=== PATIENT | male | born 1940 | race Caucasian/White ===

== ENCOUNTER 2019-05-07 01:21 | Observation (INO) ==
[2019-05-07] MEDS ORDERED: NITROGLYCERIN TOP ONE (01:28)
[2019-05-07 01:37] LABS: HEMOGLOBIN 15.1 g/dL (14.0-18.0); RBC 5.23 XMIL (4.7-6.1); WBC 5.74 X1000 (4.8-10.8)
[2019-05-07 01:38] LABS: BASO# 0.05 X1000 (0.0-0.2); BASO% 0.9 % (0.0-0.8); EOS# 0.28 X1000 (0.0-0.7); EOS% 4.9 % (0.0-10.0); HEMATOCRIT 44.8 % (42.0-52.0); IMM GRAN# 0.02 X1000 (0.0-0.04); IMM GRAN% 0.3 % (0.0-0.5); LYMPH# 2.11 X1000 (1.2-3.4); LYMPH% 36.8 % (20.5-51.1); MCH 28.9 PG (27-31); MCHC 33.7 g/dL (33-37); MCV 85.7 FL (81-99); MONO% 15.7 % (1.7-9.3); MPV 9.9 FL (7.4-10.4); NEUT# 2.38 X1000 (1.4-6.5); NEUT% 41.4 % (42.2-75.2); PLT 264 X1000 (130-400); RDW 13.8 % (11.5-14.5)
[2019-05-07] MEDS ORDERED: NITROGLYCERIN ONE (01:38)
--- NOTE | 2019-05-07 01:45 | PROVIDER DOCUMENTATION ---
This chart was entered by Jose Whitehead Scribe, acting as scribe for Cortez Jauregui MD. HPI-Chest Pain - General Chief Complaint: Chest Pain Stated Complaint: CHEST PAINS Time Seen by Provider: 05/07/19 01:28 Source: patient, EMS Allergies/Adverse Reactions: Patient Allergies Allergy/AdvReac Type Severity Reaction Status Date / Time some kind of pain pill not Allergy Unknown Uncoded 06/19/18 11:58 sure Home Medications: Home Medication List Medication Instructions Recorded Confirmed Last Taken Type Montelukast [Singulair] 10 mg PO DAILY 04/22/15 05/07/19 07/04/18 07:00 History Tamsulosin HCl 0.4 mg PO DAILY 04/22/15 05/07/19 07/04/18 07:00 History Verapamil HCl [Verapamil ER] 180 mg PO DAILY 04/22/15 05/07/19 07/04/18 07:00 History ATORVAstatin [Lipitor] 40 mg PO DAILY 12/30/15 05/07/19 07/04/18 07:00 History Canagliflozin [Invokana] 300 mg PO DAILY@0700 11/29/17 05/07/19 07/04/18 07:00 History Exenatide Microspheres [Bydureon 2 mg SQ DIRECTED 11/29/17 05/07/19 06/28/18 08:00 History Pen] Insulin Detemir [Levemir] 60 units INJ BID 11/29/17 05/07/19 07/04/18 07:00 History Cephalexin [Keflex] 500 mg PO Q6HR 07/04/18 05/07/19 07/03/18 18:00 History Clindamycin [Cleocin] 150 mg PO Q6HR #30 cap 04/29/19 05/07/19 Unknown Rx - History of Present Illness-CP Nature of Presenting Problem: Pt is a 78 yom who presents to the ED via EMS with a CC of chest pain. Pt states he began having chest pain at approximately 0000, so he called EMS. Pt states the episode lasted approximately 30 minutes. Pt describes the pain as a sharp pain in the center of his chest, but states he is not in any pain currently. Pt states he has a hx of four stents in his heart. Pt denies being a current smoker and denies etoh use. Pt reports having a cholecystectomy. Pt denies any fever, nausea, vomiting, and diarrhea. Location: reports: central Chest Pain Radiation: reports: no radiation Quality of Pain: reports: sharp Severity in ED: mild Onset/Duration: just prior to arrival Timing: gone now Associated Symptoms: reports: denies symptoms Prior Chest Pain/Cardiac Workup: reports: no prior chest pain, other (Four cardiac stents) Similar Symptoms Previously?: No Recently Seen Here or By Another Healthcare Provider: No Review of Systems - Adult - REVIEW OF SYSTEMS - ADULT Constitutional: reports: see HPI. denies: chills, fever, fatique, night sweats, weight gain Eyes: reports: no symptoms reported Ears, Nose, Mouth & Throat: reports: no symptoms reported Cardiovascular: reports: see HPI, chest pain. denies: heart murmur, irregular heart rate, orthopnea, palpitations, poor circulation Respiratory: reports: no symptoms reported Gastrointestinal: reports: no symptoms reported Genitourinary: reports: no symptoms reported Musculoskeletal: reports: no symptoms reported Integumentary: reports: no symptoms reported Neurological: reports: no symptoms reported Psychiatric: reports: no symptoms reported Endocrine: reports: no symptoms reported Hematologic/Lymphatic: reports: no symptoms reported Allergic/Immunologic: reports: no symptoms reported All Other Systems: Reviewed and Negative Past History - Adult - PAST MEDICAL HISTORY-ADULT Review of Records: reports: Old Records Reviewed, Nursing Assessment Review, Medications Reviewed, Social history reviewed & non-contributory. Major Childhood Illnesses: reports: denies history Cardiovascular: reports: CAD, HTN Respiratory: reports: denies history Gastrointestinal: reports: denies history Obstetrical/Gynecological: reports: denies history Genitourinary: reports: denies history Musculoskeletal: reports: denies history Neurological: reports: denies history Endocrine/Immune: reports: Diabetes Other Conditions: reports: denies history - PRIOR SURGERIES/PROCEDURES Surgical/Procedure History: reports: cholecystectomy, cardiac stent - IMMUNIZATION STATUS Childhood Immunizations: See Nurse Assessment Flu Vaccine: See Nurse Assessment - FAMILY HISTORY Family History: reviewed, not pertinent - SOCIAL HISTORY Smoking: non-smoker, quit greater than 1 year Substance Use: none/never, denies Alcohol Use Frequency: sober (former use) Physical Exam-General - PHYSICAL EXAM-ADULT Initial Vital Signs Reviewed: Yes - CONSTITUTIONAL General Appearance: appears well, alert, no apparent distress. negative: severe distress, cachetic, thin, anxious - EYES Eyes: PERRL/EOMI. negative: EOM palsy, meningismus, pale conjunctivae - RESPIRATORY Respiratory: chest non-tender, lungs clear, normal breath sounds, no pleuratic chest pain, no respiratory distress, no accessory muscle use. negative: respiratory distress, decreased breath sounds, accessory muscle use, crackles, stridor, wheezing - CARDIOVASCULAR Cardiovascular: normal peripheral pulses, regular rate, rhythm, no edema, no gallop, no JVD, no murmur. negative: JVD, bradycardia, tachycardia, diastolic murmur, gallop/S3, extra beats - GASTROINTESTINAL (ABDOMEN) Abdominal Exam: normal bowel sounds, non tender, soft. negative: distended, guarding, rigid, rebound, tenderness, hernia, mass - MUSCULOSKELETAL Extremity: normal range of motion, non-tender. negative: abnormal NV exam, calf tenderness, deformity, erythema, inflammation, joint effusion - SKIN Integumentary: normal color, normal turgor, warm/dry. negative: abrasion(s), ecchymosis, embolic lesions, erythema, signs of IVDA, jaundice, laceration(s) - NEUROLOGIC Neurologic: grossly normal, no motor/sensory deficits. negative: abnormal gait, aphasia, EOM palsy, facial droop, focal weakness, motor weakness, sensory deficit - PSYCHIATRIC Psych/Mental Status: normal mood/affect, normal thought content, normal thought process, oriented x 3. negative: disoriented x 3, anxious, disheveled, depressed affect - HEART Score HEART Score: History: Slightly Suspicious HEART Score: ECG: Normal HEART Score: Age: > or = 65 Years HEART Score: Risk Factors for Atherosclerotic Disease: > or = 3 Risk Factors or History of Atherosclerotic Disease HEART Score: Troponin: < or = Normal Limit Total HEART Score:: 4 Progress - PLAN OF CARE/RESULTS Progress/Plan/Lab Results: Vital Signs - 8 hr 05/07/19 01:22 Temperature 97.8 F Pulse Rate 83 Respiratory Rate 20 Blood Pressure 193/106 O2 Sat by Pulse Oximetry 96 Laboratory Results - last 24 hr 05/07/19 05/07/19 05/07/19 01:26 01:26 01:26 WBC 5.74 RBC 5.23 Hgb 15.1 Hct 44.8 MCV 85.7 MCH 28.9 MCHC 33.7 RDW Std Deviation 13.8 Plt Count 264 MPV 9.9 Immature Gran % (Auto) 0.3 Neut % (Auto) 41.4 L Lymph % (Auto) 36.8 [place] % (Auto) 15.7 H Eos % (Auto) 4.9 Baso % (Auto) 0.9 H Immature Gran # (Auto) 0.02 Neut # (Auto) 2.38 Lymph # (Auto) 2.11 [place] # (Auto) 0.90 H Eos # (Auto) 0.28 Baso # (Auto) 0.05 Sodium Potassium Chloride Carbon Dioxide Anion Gap BUN Creatinine Estimated GFR/1.73 m2 BUN/Creatinine Ratio Glucose Calculated Osmolality Calcium Total Bilirubin AST ALT Alkaline Phosphatase Creatine Kinase 135 Troponin T < 0.010 Total Protein Albumin Globulin Albumin/Globulin Ratio 05/07/19 01:26 WBC RBC Hgb Hct MCV MCH MCHC RDW Std Deviation Plt Count MPV Immature Gran % (Auto) Neut % (Auto) Lymph % (Auto) [place] % (Auto) Eos % (Auto) Baso % (Auto) Immature Gran # (Auto) Neut # (Auto) Lymph # (Auto) [place] # (Auto) Eos # (Auto) Baso # (Auto) Sodium 142 Potassium 3.9 Chloride 106 Carbon Dioxide 26 Anion Gap 10 BUN 23 H Creatinine 1.2 Estimated GFR/1.73 m2 59 BUN/Creatinine Ratio 19 Glucose 86 Calculated Osmolality 286 Calcium 10.6 H Total Bilirubin 0.80 AST 22 ALT 19 Alkaline Phosphatase 98 Creatine Kinase Troponin T Total Protein 7.1 Albumin 4.3 Globulin 3.0 Albumin/Globulin Ratio 2.0 Orders Category Date Time Status Cardiac Monitoring DIRECTED Care 05/07/19 01:29 Active CHEST-PORTABLE [RAD] Stat Exams 05/07/19 01:30 Ordered CBC WITH ELECTRONIC DIFF [HEME] Stat Lab 05/07/19 01:26 Completed CK PROFILE [SP CHEM] Stat Lab 05/07/19 01:26 Completed CMP [COMPREHENSIVE METABOLIC PANEL] [CHEM] Stat Lab 05/07/19 01:26 Completed TROPONIN T Stat Lab 05/07/19 01:26 Completed Nitroglycerin Med 05/07/19 01:38 Discontinued 1 inch .ROUTE .STK-MED ONE Nitroglycerin Med 05/07/19 01:28 Discontinued 1 inch TOP NOW ONE Oxygen Device Stat Oth 05/07/19 01:31 Active EKG [EKG] Stat Ther 05/07/19 01:29 Ordered Result Diagrams: 05/07/19 01:26 05/07/19 01:26 - XRAY 1 XRAY Study: Chest XRAY Interpretation: NAD - CONSULTS/PCP/HOSPITALIST Notification #1 *Consult/PCP/Hospitalist*: Dr. Patel, hospitalist Time Discussed: 02:05 Consult Disposition: Admit Departure - Departure Date of Disposition Decision: 05/07/19 Time of Disposition Decision: 02:08 DIAGNOSIS: Chest pain Qualifiers: Chest pain type: unspecified Qualified Code(s): R07.9 - Chest pain, unspecified CAD (coronary artery disease) Qualifiers: Coronary Disease-Associated Artery/Lesion type: mcgrath artery [place] vs. transplanted heart: mcgrath heart Associated angina: with unspecified angina Qualified Code(s): I25.119 - Atherosclerotic heart disease of mcgrath coronary artery with unspecified angina pectoris Disposition: ADMITTED INPATIENT 09 Certified Medical Emergency: Emergent Condition: Stable Referrals and Follow-Ups: None,PCP [Primary Care Provider] - - Critical Care Note This patient required my direct & personal management of CC.: No Attestation - Physician/ JULIA Attestation Patient care was provided by Advanced Practice Provider:: No The physician spent face to face time with patient:: Yes Advanced Practice Provider documentation review:: Supervising physician onsite and consulted in the evaluation and care of this patient. The physician did have a face to face encounter with the patient. This chart was documented by the indicated scribe, (Jose Whitehead, Scribe) and accurately reflects the services I performed and decisions made by me, Cortez Jauregui MD, as attested by the provider's signature.
[2019-05-07 01:56] LABS: ALBUMIN 4.3 g/dL (3.5-5.0); CALCIUM 10.6 mg/dL (8.8-10.2); CREATININE 1.2 mg/dL (0.7-1.2); POTASSIUM 3.9 mmol/L (3.5-5.1); TOTAL BILIRUBIN 0.8 mg/dL (0.20-1.00); TOTAL PROTEIN 7.1 g/dL (6.3-8.3)
--- NOTE | 2019-05-07 04:32 | EKG Report ---
Test Performed on : 05/07/2019 01:50:51 AM Test Reason : chest pain Blood Pressure : / mmHG Vent. Rate : 075 BPM Atrial Rate : 075 BPM P-R Int : 190 ms QRS Dur : 094 ms QT Int : 406 ms P-R-T Axes : 065 -08 058 degrees QTc Int : 453 ms Normal sinus rhythm. Cannot rule out Inferior infarct (cited on or before 24-NOV-2017) Abnormal ECG When compared with ECG of 04-JUL-2018 09:52, No significant change was found Unconfirmed Result
--- NOTE | 2019-05-07 06:58 | Diag Imaging Result Doc PS360 ---
EXAM: CHEST-PORTABLE 05/07/2019 HISTORY: chest pain TECHNIQUE: AP portable at 0217 COMMENT: There is no evidence of acute cardiac or pulmonary disease. Compared to 06/19/2018 there has been no significant change in the appearance of the chest. IMPRESSION: No evidence of acute disease. Electronically signed by Mo Gauthier 05/07/2019 6:55 AM
[2019-05-07 12:35] VITALS: BP 138/86
--- NOTE | 2019-06-06 11:02 | DISCHARGE SUMMARY ---
ADMISSION DATE: 05/07/2019 DISCHARGE DATE: 05/07/2019 This patient was admitted from the ER with a history of typical chest pain, past history of stents, diabetes, hypertension. He was admitted to rule out. His CBC was normal. His serial enzymes were negative. CBC was normal. Chest x-ray was read as normal. His vital signs were stable during the hospital stay. He ruled out. He was asymptomatic and was discharged to be followed up in the office. cc: Troy Neely MD
--- NOTE | 2019-06-06 11:35 | HISTORY AND PHYSICAL ---
HISTORY OF PRESENT ILLNESS: This is a clinic patient of [facility] who presented to the Emergency Room on the day of admission complaining of chest pain. He was brought in by EMS. The patient states that the pain began approximately at midnight so he called EMS. The patient states that the episode lasted approximately 30 minutes. The pain is described as a sharp pain in the center of his chest but on arrival he had no pain at all. He has had a history of ischemic heart disease with 4 stents. The patient denies being a current smoker or ETOH use. He has had a previous cholecystectomy. No history of liver disease or any particular stomach disorders. The patient denies fever, nausea, vomiting, diarrhea, melena, or hematochezia. The pain was described as sharp right in the center of his chest when it was there and because of the stents he presented to the Emergency Room. ALLERGIES: He has no allergies. MEDICATIONS: His medications are Singulair, Flomax, verapamil 180 mg daily, atorvastatin 40 mg daily, Invokana 300 mg daily, exenatide 2 mg subcutaneously weekly, and insulin detemir 6 units b.i.d. PAST MEDICAL HISTORY: The patient has had a previous history of coronary artery disease and hypertension. He has type 2 diabetes. He denies any significant respiratory illnesses, gastrointestinal problems, or genitourinary problems. He has had a previous cholecystectomy as well. He is an ex-smoker for greater than a year. REVIEW OF SYSTEMS: Constitutional: He denies any fever, chills, or significant weight gain or weight loss lately. Eyes: No change in visual acuity. No issues with his sclerae, conjunctivae, or vision hernández. Ears, Nose, and Throat: Negative. No evidence of pharyngitis, otitis, or sinusitis. Cardiovascular: See the History of Present Illness. Respiratory: Distant ex-smoker. No significant shortness of breath, persistent cough, phlegm production, or hemoptysis. Gastrointestinal: He is status post cholecystectomy. He denies any nausea, vomiting, diarrhea, constipation, melena, hematochezia, or hematemesis. Genitourinary: He has some lower urinary tract symptoms but nothing significant. No history of prostate cancer or bladder disorders. Musculoskeletal: Negative. Skin: Clear. Neurological: No focal neurological deficits. He has no seizure problems. He has had some issues with some dizziness that has been worked up in the past feeling like he was going to have a stroke but always the tests were normal. Hematological: No DVT or superficial venous thromboses. PHYSICAL EXAMINATION: VITAL SIGNS: At the time of admission his temperature was 97.8, pulse 83, respiratory rate 20, and BP 193/106. O2 saturation was 96%. HEENT: His head was normocephalic. Male pattern baldness. Eyes: PERRL. EOMs intact. Sclerae are clear. Fundi benign. Nares patent. Oropharynx negative. CHEST: Clear bilateral breath sounds. No consolidated findings. No wheezes. No rhonchi. CARDIOVASCULAR: He has a regular rhythm and rate. No murmurs, gallops, clicks, or rubs. ABDOMEN: Soft, obese, and nondistended. No guarding. Positive bowel sounds. MUSCULOSKELETAL: Negative. SKIN: Clear. NEUROLOGICAL: No focal neurological deficits. Memory is fine about current events but he is having a little issue with remembering things per his son. PSYCHIATRIC: He is usually oriented and not confused. LABORATORY DATA: In the E.R. his initial CBC was normal. CK and troponin likewise were normal. Comp normal other than a BUN of 23. In the E.R. he was given some nitroglycerin, otherwise nothing. He was admitted with chest pain. He has a history of ischemic heart disease, history of diabetes, and status-post cholecystectomy. He was admitted to rule out heart disease. His chest x-ray was basically normal. Preliminary lab was normal. His May 07 chest x-ray was negative. He was admitted with atypical chest pain. cc: Troy Neely MD
== END 2019-05-07 12:55 | disposition home or self-care (01) ==
LOC: P.MEDSURG 01:21 → P.ED 01:21
PROVIDERS: ADMIT Internal Medicine; ATTEND Internal Medicine
CPT/HCPCS: 71010; 71045; 80053; 82550; 82948; 84484; 85025; 85379; 93005; 99285; A9270; XXXXX

== ENCOUNTER 2019-08-13 20:06 | Observation (INO) ==
--- NOTE | 2019-08-13 21:07 | Diag Imaging Result Doc PS360 ---
XRAY PELVIS W/HIP 2-3VW LT - 08/13/2019 INDICATION: fall, injury TECHNIQUE: Three views COMPARISON: A complete pelvis and left hip series was performed at 11:00 AM this morning FINDINGS: There is no visible fracture or dislocation. There is advanced degeneration of the sacroiliac joints. IMPRESSION: No visible acute injury. If occult injury is suspected, then recommend a pelvis CT. Electronically signed by Gilberto Martino 08/13/2019 9:05 PM
--- NOTE | 2019-08-13 22:29 | PROVIDER DOCUMENTATION ---
This chart was entered by Dayana Mc Scribe, acting as scribe for Adonis Young MD. HPI-General Adult - General Chief Complaint: Fall Stated Complaint: dizzy/weakness Time Seen by Provider: 08/13/19 20:24 Source: patient, family Allergies/Adverse Reactions: Patient Allergies Allergy/AdvReac Type Severity Reaction Status Date / Time meperidine [From Demerol] Allergy Mild RASH Verified 08/13/19 10:22 propoxyphene Allergy Mild RASH Verified 08/13/19 10:22 [From Darvocet-N] Home Medications: Home Medication List Medication Instructions Recorded Confirmed Last Taken Type Montelukast [Singulair] 10 mg PO DAILY PRN 04/22/15 08/13/19 08/13/19 History Tamsulosin HCl 0.4 mg PO BID 04/22/15 08/13/19 08/13/19 History Verapamil HCl [Verapamil ER] 180 mg PO DAILY 04/22/15 08/13/19 08/13/19 History ATORVAstatin [Lipitor] 40 mg PO DAILY 12/30/15 08/13/19 08/13/19 History Canagliflozin [Invokana] 300 mg PO DAILY@0700 11/29/17 08/13/19 08/13/19 History Exenatide Microspheres [Bydureon 2 mg SQ DIRECTED 11/29/17 08/13/19 08/13/19 History Pen] Insulin Detemir [Levemir] 50 units INJ BID 11/29/17 08/13/19 08/13/19 History Memantine HCl 10 mg PO DAILY 05/07/19 08/13/19 08/13/19 History - History of Present Illness -Gen Adult Nature of Presenting Problems: Pt is 78/m presenting to ED via EMS. Pt was seen in ED this morning and dx w/ dehydration. Son at beside sts that his blood pressure was fluctuating as well. Pt sts that he got dizzy at home and fell down. He was worried about a broken bone. He says that his L hip hurts and he has some pain in is feet and legs. Pt is able to bear weight and has walked around since fall. Location of Pain/Injury: reports: other (hips) Pain Radiation: reports: legs (lower) Quality of Pain: reports: aching Severity: reports: mild Onset/Duration: reports: just prior to arrival Timing: reports: still present Context/Activities at Onset: reports: none Modifying Factors: improves with: nothing Associated Symptoms: denies: arm pain, cough, shortness of breath, weakness, trouble walking Recently seen or treated by another doctor?: Yes (in ED this AM. ) Review of Systems - Adult - REVIEW OF SYSTEMS - ADULT Constitutional: denies: chills, fever Eyes: reports: no symptoms reported Ears, Nose, Mouth & Throat: reports: no symptoms reported Cardiovascular: reports: no symptoms reported. denies: chest pain Respiratory: reports: no symptoms reported. denies: cough, shortness of breath, wheezing Gastrointestinal: reports: no symptoms reported Genitourinary: reports: no symptoms reported Musculoskeletal: reports: other (hip pain). denies: bone pain, back pain Integumentary: reports: no symptoms reported Neurological: reports: no symptoms reported. denies: dizziness/vertigo, headache/migraines Psychiatric: reports: no symptoms reported Endocrine: reports: no symptoms reported Hematologic/Lymphatic: reports: no symptoms reported Allergic/Immunologic: reports: no symptoms reported All Other Systems: Reviewed and Negative Past History - Adult - PAST MEDICAL HISTORY-ADULT Review of Records: reports: Nursing Assessment Review, Medications Reviewed, Social history reviewed & non-contributory. Major Childhood Illnesses: reports: denies history Cardiovascular: reports: CAD, HTN Respiratory: reports: denies history Gastrointestinal: reports: denies history Obstetrical/Gynecological: reports: denies history Genitourinary: reports: denies history Musculoskeletal: reports: denies history Neurological: reports: denies history Endocrine/Immune: reports: Diabetes Other Conditions: reports: denies history - PRIOR SURGERIES/PROCEDURES Surgical/Procedure History: reports: cholecystectomy, cardiac stent - IMMUNIZATION STATUS Childhood Immunizations: See Nurse Assessment Flu Vaccine: See Nurse Assessment - FAMILY HISTORY Family History: reviewed, not pertinent - SOCIAL HISTORY Smoking: quit greater than 1 year Substance Use: none/never Alcohol Use Frequency: sober (former use) Living Situation: alone Physical Exam-General - PHYSICAL EXAM-ADULT Initial Vital Signs Reviewed: Yes - CONSTITUTIONAL General Appearance: appears well, alert, mild distress - EYES Eyes: PERRL/EOMI, pink conjunctivae - HEAD, EARS, NOSE, MOUTH & THROAT HENMT: moist mucous membranes - NECK Neck: non-tender, full range of motion, supple, normal inspection - RESPIRATORY Respiratory: lungs clear - CARDIOVASCULAR Cardiovascular: regular rate, rhythm - GASTROINTESTINAL (ABDOMEN) Abdominal Exam: non tender, soft - MUSCULOSKELETAL Back Exam: normal inspection Extremity: normal range of motion, non-tender, normal gait, normal inspection - SKIN Integumentary: normal color, warm/dry - NEUROLOGIC Neurologic: grossly normal - PSYCHIATRIC Psych/Mental Status: normal mood/affect, normal thought content, normal thought process, oriented x 3 Progress - PLAN OF CARE/RESULTS Progress/Plan/Lab Results: Vital Signs - 8 hr 08/13/19 20:01 Temperature 98 F Pulse Rate 99 H Respiratory Rate 18 Blood Pressure 128/81 O2 Sat by Pulse Oximetry 97 - REASSESSMENT Reassessment #1 Time Reassessed: 22:25 Status: unchanged (hip x-ray neg, note orthostaic BPs.) - EKG 1 Time of EKG reading by physician:: 21:44 EKG Read and Signed by:: Adonis Young EKG Interpretation (*Must complete 3 of following elements*): Abnormal (Sinus rhythm with 1st degree AV block. Possible Inferior infarct, age undetermined. Abnormal ECG) Rate: 82 Rhythm: Sinus [place]: normal QRS: normal 2 Time of EKG reading by physician:: 20:04 EKG Read and Signed by:: Adonis Yuong EKG Interpretation (*Must complete 3 of following elements*): Abnormal (Normal Sinus Rhythm, Possible inferior infarct, age undeterined, Cannot rule out Anterior infarct, age undetermined, Abnormal ECG) Rate: 99 Rhythm: NSR [place]: normal QRS: normal - XRAY 1 XRAY: Bilateral XRAY Study: Pelvis, Hip Impression: Normal (XRAY PELVIS W/HIP 2-3VW LT - 08/13/2019 INDICATION: fall, injury TECHNIQUE: Three views COMPARISON: A complete pelvis and left hip series was performed at 11:00 AM this morning FINDINGS: There is no visible fracture or dislocation. There is advanced degeneration of the sacroiliac joints. IMPRESSION: No visible acute injury. If occult injury is suspected, then recommend a pelvis CT. Electronically signed by Gilberto Martino 08/13/2019 9:05 PM 08/13/192104 Interpreting Physician: Gilberto Martino MD Dictated Date/Time: 08/13/192102 cc: Adonis Young MD;) - CONSULTS/PCP/HOSPITALIST Notification #1 *Consult/PCP/Hospitalist*: dr Migue Neely Time Discussed: 22:26 Consult Disposition: Admit Departure - Departure Date of Disposition Decision: 08/13/19 Time of Disposition Decision: 22:26 DIAGNOSIS: Orthostatic hypotension, Fall, Sciatica of left side associated with disorder of lumbar spine Disposition: ADMITTED INPATIENT 09 Certified Medical Emergency: Emergent Condition: Fair Referrals and Follow-Ups: Troy Neely MD [Primary Care Provider] - - Critical Care Note This patient required my direct & personal management of CC.: No Attestation - Physician/ JULIA Attestation Patient care was provided by Advanced Practice Provider:: No The physician spent face to face time with patient:: Yes Advanced Practice Provider documentation review:: Supervising physician onsite and consulted in the evaluation and care of this patient. The physician did have a face to face encounter with the patient. This chart was documented by the indicated scribe, (Dayana Mc, Thu) and accurately reflects the services I performed and decisions made by me, Adonis Young MD, as attested by the provider's signature.
[2019-08-14] MEDS ORDERED: NS 1,000 ML IV ONE (00:40)
[2019-08-14] MEDS ORDERED: ISOPTIN SR PO ONE (00:40)
[2019-08-14] MEDS ORDERED: TORADOL IV PRN (00:40)
[2019-08-14] MEDS ORDERED: ZOFRAN IV PRN (00:40)
[2019-08-14] MEDS ORDERED: LIPITOR PO ONE (00:40)
[2019-08-14] MEDS ORDERED: FLU VACCINE IM ONE (01:12)
[2019-08-14] MEDS ORDERED: NAMENDA PO SCH (09:00)
[2019-08-14] MEDS ORDERED: FLOMAX PO SCH (09:00)
[2019-08-14] MEDS ORDERED: LEVEMIR INSULIN *HA SUBQ SCH (09:00)
[2019-08-14] MEDS ORDERED: INVOKANA PO SCH (09:00)
[2019-08-14] MEDS ORDERED: NS 500 ML IV ONE (13:41)
[2019-08-14 16:18] VITALS: BP 129/64
--- NOTE | 2019-08-30 14:23 | HISTORY AND PHYSICAL ---
HISTORY OF PRESENT ILLNESS: He is a regular office patient of [facility]. He presented to the emergency room on 08/13/2019 at 2024 complaining of dizziness and weakness, brought in by his attentive son, and he also has fallen. ALLERGIES: Darvocet. MEDICATIONS ON ADMISSION: Singulair, Flomax 0.4, verapamil 180, atorvastatin 40, Invokana 300, exenatide or Bydureon 2 mg subcutaneously weekly, insulin Levemir 50 units b.i.d., and Namenda 10 mg daily. This patient is a 78-year-old man presenting to the emergency room, came in by EMS, was seen in the emergency room earlier the morning of presentation with a diagnosis of dehydration. Son at bedside states that his blood pressure was fluctuating as well. He states that the patient got dizzy at home and fell down. He was worried about a broken bone. The patient states that his left hip hurts. He said this on several different occasions and has never been the case, and he has had some pain in his feet and his legs. The patient is able to bear weight and has walked around since the fall. It is sort of on the lateral aspect on his left side primarily, described as a mild ache. It is present currently. There are no factors that seem to influence it in a positive or negative way. He denies any associated symptoms other than falling. REVIEW OF SYSTEMS: He denies any fever, chills, weight loss, weight gain, night sweats. Eyes: No visual acuity issues. No change in field of vision. No irritation of the lids and sclerae. Ears, nose and throat: No pharyngitis, sinusitis or otitis issues. No epistaxis. Cardiovascular: He denies any chest pain, palpitations, tachycardia, bradycardia. Respiratory: He denies a cough, shortness of breath, wheezing, phlegm production, upper respiratory symptoms. Gastrointestinal: No nausea, vomiting, diarrhea, constipation, melena, hematochezia, hematemesis, reflux. Genitourinary: No polyuria, pyuria, hematuria. He has some frequent nocturia and diminished volume in his urination stream. Musculoskeletal: He has this chronic hip pain that has been evaluated in the past. I find no significant pathological findings. No gout. No osteoarthritis. No rheumatoid arthritis. No psoriatic arthritis. Skin: No skin rashes or lesions. Neurologic: No focal neurological deficits. No TIA. No syncope. No seizure disorder. 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 Endocrine: No polyuria, polydipsia, hematuria. Hematologic/lymphatic: No bleeding or clotting. Allergies: No asthma. PAST MEDICAL HISTORY: He has a history of coronary artery disease and hypertension and a history of diabetes. He has had a previous cholecystectomy and a cardiac stent. SOCIAL HISTORY: He quit smoking greater than a year ago and does not use substances not prescribed to him. He was a former heavy drinker. He currently lives alone, and son sees after him. The patient has become very needy and worries about his dizziness and other associated symptoms. PHYSICAL EXAMINATION: VITAL SIGNS: When he was admitted, he had temperature of 98, pulse 99, respiratory rate 18, blood pressure 128/81, O2 saturation was 97%. GENERAL: He was well alert and no distress that I could see. He said that his leg hurt up near the greater trochanter on the left. HEENT: PERRL. EOMs intact. Sclerae clear. Fundi benign. Nares patent. Oropharynx negative. ENT negative. NECK: Supple. Midline trachea. No lymphadenopathy. No thyromegaly. RESPIRATORY: Bilateral clear breath sounds. CARDIOVASCULAR: Regular rate and rhythm. No murmurs, gallops, clicks or rubs. ABDOMEN: Soft. No hepatosplenomegaly. No CVA tenderness. Positive bowel sounds. EXTREMITIES: Negative for cyanosis, clubbing or edema. Gait was normal. SKIN: Clear. No lesions or rashes. NEUROLOGICAL: Grossly symmetric. He sometimes, we think, is a little bit demented. He seems to be coming up with these stories about falling and hurting his left leg on a pretty regular basis. DATABASE: In the ER, EKG was basically first degree block, possible inferior infarct. Followup with no significant difference. X-rays of his hip and pelvis with no visible fracture or dislocation. 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 ASSESSMENT AND PLAN: He was deemed to be: 1. Orthostatic hypotension. 2. Fall. 3. Sciatica, left side. Admitted as an inpatient. cc: Troy Neely MD
--- NOTE | 2019-08-30 15:22 | DISCHARGE SUMMARY ---
ADMISSION DATE: 08/14/2019 DISCHARGE DATE: 08/14/2019 HISTORY OF PRESENT ILLNESS: The patient was hospitalized for 1 day with some atypical findings. He presented with a pulse of 99, blood pressure 128/81, respiratory rate 18, O2 saturation 97%. Later that day, we did orthostatic pressures on him. We noted that in the supine position, his pulse rate was 79, blood pressure 133/81. Standing, his pulse was 83, but his blood pressure dropped to 89/57. So there were some orthostatic changes, and that may be playing a role with him, and we are deciding whether or not to continue to use verapamil that be causing his pressure to go low. Possibly, tamsulosin could be a culprit as well. His EKG was sinus rhythm, minor Q waves, possible inferior infarct, but otherwise negative. He had early transition in V2 of his chest leads. His random blood sugar was 106. He seemed to be fine the next day. His vital signs showed no significant tilt now. His blood pressure went from 129 down to 119. Pulses did not significantly change. So I think there is a component of that, whether it is from not drinking or his verapamil is another question. We are going to try to get him to get up slower. He is going to come by the office, and we will continue to see if he tilts. He is not really taking any diuretic, and his pain in his leg I think is coming from his SI joint and not his hip. We will follow up in the office. cc: Troy Neely MD
== END 2019-08-14 17:30 | disposition home or self-care (01) ==
LOC: P.MEDSURG 20:06 → P.ED 20:06
PROVIDERS: ADMIT Internal Medicine; ATTEND Internal Medicine